=== PATIENT | female | born 1950 | race Caucasian/White ===

== ENCOUNTER 2017-10-29 16:35 | Observation (INO) | payer OTHER ==
[~2017-10-29] VITALS: Ht 154.9 cm; Wt 75.7 kg
[~2017-10-29 16:35] MED LIST: ADVAIR 250/501 DISK IH; ALTACE10 M1 PO; ASPIR 8181 M1 PO; ASPIR-LOW81 M1 PO; ATORVASTATIN CA20 MG PO; Aspirin E.C. PO; BENICAR20 MG PO; BYSTOLIC10 MG PO; Bystolic PO; CALCIUM 500 MG1 EACH PO; CARDURA8 MG PO; CEFDINIR300 MG PO; CHEWABLE MULTI1 EACH PO; CLINDAMYCIN HC300 MG PO; COMPAZINE10 MG PO; Colace PO; DIAZEPAM5 MG PO; DOXAZOSIN MESYLA2 MG PO; EFFEXOR XR37.5 MG PO; EFFEXOR XR75 MG PO; EFFEXOR37.5 MG PO; EFFEXOR75 MG PO; Effexor XR PO; FLOVENT 11120 INHALA IH; FUROSEMIDE40 MG PO; FUROSEMIDE80 MG PO; Flagyl PO; GABAPENTIN100 MG PO; KAYEXALATE15 GM/60 M PO; KAYEXALATE453.6 GM PO; LABETALOL HCL200 MG PO; LACTULOSE10 GM/151 PO; LANTUS 10100 UNITS/ SC; LANTUS 10100 UNITS/ SQ; LANTUS 3 M100 UNITS1 SC; LANTUS100 UNIT/1 SQ; LASIX80 MG PO; LEVOTHYROXINE175 MCG PO; LIDODERM 5% P1 PATCH TD; LIPITOR40 MG PO; LO-DOSE ASPIRIN81 M1 PO; LO-DOSE ASPIRIN81 M2 PO; Lasix PO; Levothroid,Synthroid PO; Lovenox SC; METOPROLOL SUCC50 MG PO; METOPROLOL TAR100 MG PO; NEPHRO-VITE RX1 EACH PO; NEPHRO-VITE,1 TABLET PO; NEURONTIN100 MG PO; NIFEDICAL XL60 MG PO; NIFEDIPINE ER60 MG PO; NORMODYNE,TRAN200 MG PO; ONDANSETRON HCL4 MG PO; Omnicef PO; PANTOPRAZOLE SO40 MG PO; PERCOCET 5/31 TABLET PO; PRILOSEC20 MG PO; PROAIR HFA8.5 GM IH; PROCARDIA XL60 MG PO; PROCARDIA20 MG PO; PROTONIX40 MG PO; PROVENTIL,2.5 MG/0.5 IH; Procardia XL,Adalat PO; RANITIDINE HCL150 MG PO; RENAL VITAMIN PO; RENVELA PO; RENVELA800 MG PO; SENSIPAR30 MG PO; SODIUM BICARBO325 MG PO; SYNTHROID150 MCG PO; Sensipar PO; Sodium Bicarbonate PO; TIZANIDINE HCL2 MG PO; TOPROL XL50 MG PO; TYLENOL REGULA325 MG PO; VALIUM5 MG PO; VENLAFAXINE HCL75 MG PO; VITAMIN D2000 INTUN PO; Vicodin,Norco 5/325 PO; ZANTAC150 MG PO; Zemplar IV; Zestril,Prinivil PO; predniSONE PO
[2017-10-29 17:19] LABS: BASOPHIL (%) 0.7 % (0-1); EOSINOPHIL (%) 2.5 % (0-5); EOSINOPHIL COUNT 0.2 K/uL (0-0.3); HEMATOCRIT 37.7 % (36.0-46.0); HEMOGLOBIN 12.7 G/DL (11.9-15.5); IMMATURE GRANULOCYTE (%) 0.3 % (0.0-0.7); LYMPHOCYTE (%) 16.3 % (15-42); MCH 31.1 PG (29.0-34.0); MCHC 33.7 G/DL (30.0-36.0); MCV 92.4 FL (83-99); MONOCYTE COUNT 0.5 K/uL (0-0.8); NEUTROPHIL (%) 72.2 % (45-76); NEUTROPHIL COUNT 4.3 K/uL (1.8-6.4); PLATELET COUNT 151 K/uL (156-360); RBC DIS.WIDTH-CV 14.8 % (11.8-14.6); RED BLOOD COUNT 4.08 M/uL (3.80-5.20); WHITE BLOOD COUNT 5.9 K/uL (4.1-10.2)
[2017-10-29 17:30] LABS: ALBUMIN 3.9 g/dL (3.2-4.8)
[2017-10-29 17:31] LABS: CHLORIDE 93 mEq/L (99-109); POTASSIUM 5.7 mEq/L (3.7-5.4); SODIUM 137 mEq/L (136-147)
[2017-10-29 17:33] LABS: GLUCOSE 113 mg/dL (70-99); TOTAL PROTEIN 7.6 g/dL (6.4-8.3)
[2017-10-29 17:35] LABS: TOTAL BILIRUBIN 0.6 mg/dL (0.0-1.0)
[2017-10-29 17:36] LABS: ALKALINE PHOSPHATASE 215 IU/L (3-129)
[2017-10-29 17:37] LABS: CREATININE 5.6 mg/dL (0.6-1.3); GFR ESTIMATE (CALCULATED) 8 mL/min/
[2017-10-29 17:38] LABS: AST (GOT) 75 IU/L (2-34); UREA NITROGEN (BUN) 48 mg/dL (9-23)
[2017-10-29 17:39] LABS: ALT (GPT) 38 IU/L (3-49)
[2017-10-29 17:42] LABS: TROP-I INTERPRETATION NEGATIVE; TROPONIN-I 0.02 ng/mL (0.0-0.30)
[2017-10-29] MEDS ORDERED: CALCIUM 500 MG1 EACH PO (19:40)
[2017-10-29] MEDS ORDERED: SYNTHROID200 MCG PO (19:42)
[2017-10-29 22:37] VITALS: BP 133/65
[2017-10-30 00:39] VITALS: BP 141/65
[2017-10-30 01:07] LABS: TROP-I INTERPRETATION NEGATIVE; TROPONIN-I 0.01 ng/mL (0.0-0.30)
[2017-10-30 05:04] VITALS: BP 146/67
[2017-10-30 07:05] VITALS: BP 154/72
[2017-10-30 07:18] LABS: HEMOGLOBIN 12.5 G/DL (11.9-15.5); MCH 30.9 PG (29.0-34.0); MCHC 32.9 G/DL (30.0-36.0); MCV 93.8 FL (83-99); PLATELET COUNT 141 K/uL (156-360); RBC DIS.WIDTH-SD 51.8 % (39-53); RED BLOOD COUNT 4.05 M/uL (3.80-5.20); WHITE BLOOD COUNT 4.1 K/uL (4.1-10.2)
[2017-10-30 07:39] LABS: TROP-I INTERPRETATION NEGATIVE; TROPONIN-I 0.01 ng/mL (0.0-0.30)
[2017-10-30 07:47] LABS: CHLORIDE 89 MEQ/L (99-109); CREATININE 6.3 MG/DL (0.6-1.3); GFR ESTIMATE (CALCULATED) 7 mL/min/; POTASSIUM 4.7 MEQ/L (3.7-5.4); SODIUM 135 MEQ/L (136-147); UREA NITROGEN (BUN) 56 mg/dL (9-23)
[2017-10-30 07:48] LABS: GLUCOSE 55 mg/dL (70-99)
[2017-10-30 11:03] VITALS: BP 154/74
[2017-10-30] MEDS ORDERED: ASPIR-LOW81 MG PO (12:59)
[2017-10-30 16:02] VITALS: BP 114/58
== END 2017-10-30 16:47 | disposition home or self-care (01) ==
LOC: EME 16:35 → 5WEST 20:08 → EDOF 20:08 → ENRESERV 20:12 → 5WEST 22:21
PROVIDERS: Emergency Medicine; Hospitalist
PROC: 5A1D70Z Performance of Urinary Filtration, Intermittent, Less than 6 Hours Per Day (ICD-10-PCS; principal; 2017-10-30)
DX: R07.9 Chest pain, unspecified (principal); I12.0 Hypertensive chronic kidney disease with stage 5 chronic kidney disease or end stage renal disease; N18.6 End stage renal disease; Z99.2 Dependence on renal dialysis; E11.22 Type 2 diabetes mellitus with diabetic chronic kidney disease; I47.1 Supraventricular tachycardia; E78.5 Hyperlipidemia, unspecified; Z82.49 Family history of ischemic heart disease and other diseases of the circulatory system; I35.0 Nonrheumatic aortic (valve) stenosis; D63.1 Anemia in chronic kidney disease; K21.9 Gastro-esophageal reflux disease without esophagitis; J45.909 Unspecified asthma, uncomplicated; Z87.11 Personal history of peptic ulcer disease; Z90.49 Acquired absence of other specified parts of digestive tract; Z80.0 Family history of malignant neoplasm of digestive organs; Z82.5 Family history of asthma and other chronic lower respiratory diseases; Z83.3 Family history of diabetes mellitus; Z86.718 Personal history of other venous thrombosis and embolism; Z88.0 Allergy status to penicillin; Z88.1 Allergy status to other antibiotic agents
CPT/HCPCS: 71046; 71275; 80048; 80053; 82948; 84484; 85025; 85027; 93005; 94640; 99281; 99285; G0257; G0378; J1644